=== PATIENT | male | born 1945 | race African-American/Black ===

== ENCOUNTER 2017-09-28 11:31 | Inpatient (IN) | payer MEDICARE, MEDICAID, OTHER ==
[2017-09-28] MEDS ORDERED: LIDOCAINE 1% (MDV) 20 ML INJ ×2 (13:31→13:33)
[2017-09-28] MEDS ORDERED: HEPARIN 1000 UNITS/ML 10 ML INJ (13:31)
[2017-09-28] MEDS ORDERED: VERAPAMIL 5 MG INJ (13:32)
[2017-09-28] MEDS ORDERED: MIDAZOLAM 1 MG/ML 2 ML INJ (13:32)
[2017-09-28] MEDS ORDERED: NITROGLYCERIN (IC) 100 MCG/ML INJ (13:32)
[2017-09-28] MEDS ORDERED: IODIXANOL LOCM 100 ML BTL ×3 (13:32→16:03)
[2017-09-28] MEDS ORDERED: FENTAnyl 50 MCG/ML VIAL (13:32)
[2017-09-28 13:56] LABS: ADD MAN DIFF? NO
[2017-09-28 14:00] LABS: WHITE BLOOD COUNT 5.3 10^3/ul (4.8-10.8)
[2017-09-28 14:00] LABS: BASOPHILS % 0.6 % (0.0-2.0); EOSINOPHILS # 0.2 10^3/ul (0.0-0.5); EOSINOPHILS % 3.2 % (0.0-7.0); HEMATOCRIT 48.7 % (42.0-52.0); LYMPHOCYTES # 1.1 10^3/ul (0.8-2.9); LYMPHOCYTES % 19.9 % (15.0-51.0); MEAN CORPUSCULAR HEMOGLOBIN 31.8 pg (29.0-33.0); MEAN CORPUSCULAR HGB CONC 34.9 g/dl (32.0-37.0); MONOCYTE # 0.5 10^3/ul (0.3-0.9); MONOCYTES % 9.8 % (0.0-11.0); NEUTROPHIL # 3.5 10^3/ul (1.6-7.5); NEUTROPHILS % 66.3 % (39.0-77.0); PLATELET COUNT 210 10^3/UL (140-415); RED BLOOD COUNT 5.35 10^6/ul (4.70-6.10); RED CELL DISTRIBUTION WIDTH 13.2 % (11.5-14.5)
[2017-09-28 14:15] LABS: ANION GAP 15 (8-16); CARBON DIOXIDE 28 mmol/L (21-31); CHLORIDE 104 mmol/L (97-110); GLUCOSE 97 mg/dl (70-220)
[2017-09-28 14:24] LABS: BLOOD UREA NITROGEN 11 mg/dl (7-20); CALCIUM 9.8 mg/dl (8.4-10.2); CREATININE 0.82 mg/dl (0.61-1.24); SODIUM 143 mmol/L (135-144)
[2017-09-28] MEDS ORDERED: TICAGRELOR 90 MG TABLET (15:05)
[2017-09-28] MEDS ORDERED: CLOPIDOGREL 300 MG TAB (15:09)
[2017-09-28] MEDS ORDERED: BIVALIRUDIN 250MG /NS 50 ML 50 ML IVPB (16:03)
[2017-09-28] MEDS ORDERED: IOHEXOL 350MG/ML 50 ML BTL (16:03)
[2017-09-28] MEDS ORDERED: morphine 2 MG INJ IV (17:00)
[2017-09-28] MEDS: ATORVASTATIN 80 MG TAB PO (20:53)
[2017-09-28] MEDS: BENAZEPRIL 20 MG TAB PO (20:54)
[2017-09-28] MEDS ORDERED: ATROPINE 1 MG/10 ML SYRINGE (22:22)
[2017-09-29] MEDS: ACETAMINOPHEN 500 MG TAB PO (00:29)
[2017-09-29] MEDS ORDERED: ACETAMINOPHEN 325 MG TAB PO (00:30)
[2017-09-29 06:06] LABS: ADD MAN DIFF? NO
[2017-09-29 06:28] LABS: WHITE BLOOD COUNT 5.2 10^3/ul (4.8-10.8)
[2017-09-29 06:28] LABS: BASOPHILS % 0.4 % (0.0-2.0); EOSINOPHILS # 0.2 10^3/ul (0.0-0.5); EOSINOPHILS % 4.4 % (0.0-7.0); HEMATOCRIT 41.1 % (42.0-52.0); HEMOGLOBIN 14.7 g/dl (14.0-18.0); LYMPHOCYTES # 0.8 10^3/ul (0.8-2.9); LYMPHOCYTES % 15.7 % (15.0-51.0); MEAN CORPUSCULAR HEMOGLOBIN 32.2 pg (29.0-33.0); MEAN CORPUSCULAR HGB CONC 35.8 g/dl (32.0-37.0); MEAN CORPUSCULAR VOLUME 89.9 fl (82.0-101.0); MEAN PLATELET VOLUME 10.9 fl (7.4-10.4); MONOCYTE # 0.6 10^3/ul (0.3-0.9); MONOCYTES % 12.2 % (0.0-11.0); NEUTROPHIL # 3.5 10^3/ul (1.6-7.5); NEUTROPHILS % 66.9 % (39.0-77.0); PLATELET COUNT 199 10^3/UL (140-415); RED BLOOD COUNT 4.57 10^6/ul (4.70-6.10); RED CELL DISTRIBUTION WIDTH 13.6 % (11.5-14.5)
[2017-09-29 07:06] LABS: ANION GAP 16 (8-16); BLOOD UREA NITROGEN 12 mg/dl (7-20); CALCIUM 9.3 mg/dl (8.4-10.2); CARBON DIOXIDE 23 mmol/L (21-31); CHLORIDE 107 mmol/L (97-110); CREATININE 0.91 mg/dl (0.61-1.24); GLUCOSE 76 mg/dl (70-220); PHOSPHORUS 4.1 mg/dl (2.5-4.9); POTASSIUM 3.6 mmol/L (3.5-5.1); SODIUM 142 mmol/L (135-144)
[2017-09-29] MEDS: AMLODIPINE 10 MG TAB PO (08:48)
[2017-09-29] MEDS: CLOPIDOGREL 75 MG TAB PO (08:49)
[2017-09-29] MEDS: ASPIRIN 81 MG TAB PO (08:49)
[2017-09-29] MEDS: BENAZEPRIL 20 MG TAB PO (08:49)
== END 2017-09-29 13:40 | disposition home or self-care (01) | DRG 251 ==
LOC: CCL 11:31 → SDS 11:40 → CCL 16:42 → REC 17:33 → ICU 18:25
PROC: 02713ZZ Dilation of Coronary Artery, Two Arteries, Percutaneous Approach (ICD-10-PCS; principal; 2017-09-28 13:44)
PROC: 4A023N7 Measurement of Cardiac Sampling and Pressure, Left Heart, Percutaneous Approach (ICD-10-PCS; 2017-09-28 13:44)
PROC: B2011ZZ Plain Radiography of Multiple Coronary Arteries using Low Osmolar Contrast (ICD-10-PCS; 2017-09-28 13:44)
PROC: B2051ZZ Plain Radiography of Left Heart using Low Osmolar Contrast (ICD-10-PCS; 2017-09-28 13:44)
DX: I21.4 Non-ST elevation (NSTEMI) myocardial infarction (principal); I69.351 Hemiplegia and hemiparesis following cerebral infarction affecting right dominant side; I10 Essential (primary) hypertension; Z95.5 Presence of coronary angioplasty implant and graft; I25.119 Atherosclerotic heart disease of native coronary artery with unspecified angina pectoris
CPT/HCPCS: 80048; 83735; 84100; 85025; 87081; 92920; 93458